=== PATIENT | male | born 1965 | race Hispanic/Latino ===

== ENCOUNTER 2025-04-02 10:49 | Outpatient (CLI) | payer BC | END 2025-04-02 10:50 | disposition home or self-care (01) | LOC: CSHLAB 10:49 | PROVIDERS: ATTEND Otolaryngology Plastic Surgery within the Head & Neck | DX: Z01.810 Encounter for preprocedural cardiovascular examination (principal); J34.829 Nasal valve collapse, unspecified; J34.3 Hypertrophy of nasal turbinates; R06.83 Snoring; J34.2 Deviated nasal septum; J34.89 Other specified disorders of nose and nasal sinuses | CPT/HCPCS: 93005; 93010 ==